=== PATIENT | female | born 1975 | race Caucasian/White ===

== ENCOUNTER → 2019-10-02 | Outpatient (CLI) | payer BC ==
[~2019-10-02] MED LIST: BENADRYL25 MG PO; CALCIUM +D & M1 EACH PO; IMITREX6 MG/0.5 M SQ; MEDROLDOSEPACK PO; MULTIVITAMINS1 EAC7; PEPCID40 MG PO; PRENATAL PO; PREVACID15 MG; ZOFRAN 4 MG ORAL4 MG PO
== END ==
LOC: LAB 12:00
PROVIDERS: ATTEND Anesthesiology
DX: Z01.812 Encounter for preprocedural laboratory examination (principal); Z11.59 Encounter for screening for other viral diseases